=== PATIENT | female | born 1930 | race Caucasian/White ===

== ENCOUNTER → 2017-08-22 | Outpatient (CLI) | payer MEDICARE | END | disposition home or self-care (01) | LOC: RAH 08:26 | PROVIDERS: ATTEND Internal Medicine | DX: K21.9 Gastro-esophageal reflux disease without esophagitis (principal) | CPT/HCPCS: 74220 ==

== ENCOUNTER → 2019-11-25 | Outpatient (CLI) | payer MEDICARE ==
[~2019-11-25] MED LIST: IOHEXOL-350 50ML VIAL IV ONE
== END | disposition home or self-care (01) ==
LOC: RAH 10:00
PROVIDERS: ATTEND Nurse Practitioner Family
DX: G31.1 Senile degeneration of brain, not elsewhere classified (principal); G93.89 Other specified disorders of brain; I67.82 Cerebral ischemia; I63.9 Cerebral infarction, unspecified; R41.0 Disorientation, unspecified
CPT/HCPCS: 70470; Q9967